=== PATIENT | male | born 1940 | race Caucasian/White ===

== ENCOUNTER 2017-05-22 14:37 | Outpatient (CLI) | payer MEDICARE, OTHER ==
[2017-05-22 14:30] VITALS: BP 103/54
[2017-05-22] MEDS ORDERED: LINZESS145 MCG PO (15:56)
[2017-05-22] MEDS ORDERED: DEXILANT60 MG ORAL (16:00)
--- NOTE | 2017-05-22 16:21 | GI Initial Consult Note ---
Molina,Sydnee Rene N.P. 05/22/17 1621: History of Present Illness General Date patient seen: May 22, 2017 Time patient seen: 16:17 Referring physician: KAMLA Reason for Consultation: ABDOMINAL PAIN Present Illness HPI 76 year old male referred by Dr. Calderon for evaluation of abdominal pain. The patient has history of recent GIB, had EGD/colonoscopy approximately 45 days ago dx with PUD. Presents with abdominal pain, c/o of burning sensation and constipation. Denies any unintentional weight loss or changes in dietary habits. No signs of abuse or neglect. Patient is not fall risk. Home Meds Reported Medications Sitagliptin Phos/Metformin Hcl (JANUMET 50-500 MG TABLET) 1 Each Tablet, 1 TAB ORAL DAILY, TAB 05/28/17 Aspirin* (ASPIR 81*) 81 Mg Tablet.dr, 81 MG ORAL DAILY, TAB 05/28/17 Rosuvastatin Calcium* (CRESTOR*) 40 Mg Tablet, 40 MG ORAL DAILY, TAB 05/28/17 Metoprolol Succinate* (METOPROLOL SUCCINATE*) 25 Mg Tab.er.24h, 25 MG ORAL DAILY , TAB 05/28/17 Dexlansoprazole (Dexilant) 60 Mg Cap.bp, 60 MG ORAL DAILY, CAP 05/22/17 Linaclotide (LINZESS) 145 Mcg Capsule, 145 MCG PO DAILY, CAP 05/22/17 Med list reviewed/reconciled: Yes Allergies: Coded Allergies: No Known Allergies (Unverified , 05/22/17) Patient History History Provided By: Patient PMH Narrative recent PUD recent blood transfusion GERD Past Surgical History: none Social History: Denies: smoking, alcohol use, drug use, other Review of Systems All Other Systems: negative except mentioned in HPI Physical Exam Vital Signs Date Time Temp Pulse Resp B/P (MAP) Pulse Ox O2 Delivery O2 Flow Rate FiO2 05/22/17 14:30 97.7 70 103/54 96 97.7 Sp02 EP Interpretation: reviewed, normal General Appearance: well appearing, no apparent distress, alert Head: normocephalic EENT: PERRL/EOMI, normal ENT inspection Neck: supple Respiratory: normal breath sounds, no respiratory distress Cardiovascular: normal rate Gastrointestinal: normal inspection, non tender, soft, normal bowel sounds, non -distended Rectal: deferred Genitourinary: deferred Musculoskeletal: normal inspection, back normal Neurologic: normal inspection, alert, oriented x3, responsive Psychiatric: normal inspection, judgement/insight normal, memory normal Skin: normal inspection, normal color, no rash, warm/dry, palpation normal, well hydrated Lymphatic: normal inspection, no adenopathy GI: Plan Problems: (1) Encounter for diagnostic endoscopy (2) Constipation (3) GERD (gastroesophageal reflux disease) (4) GIB (gastrointestinal bleeding) (5) Abdominal pain Plan EGD/EUS scheduled for 05/28/17. - NPO @ [place] day prior procedure explained. Seen with Dr. Merchant. Thank you for this patient referral. CLARISSA MERCHANT 05/28/17 1220: History of Present Illness Present Illness Home Meds Reported Medications Sitagliptin Phos/Metformin Hcl (JANUMET 50-500 MG TABLET) 1 Each Tablet, 1 TAB ORAL DAILY, TAB 05/28/17 Aspirin* (ASPIR 81*) 81 Mg Tablet., 81 MG ORAL DAILY, TAB 05/28/17 Rosuvastatin Calcium* (CRESTOR*) 40 Mg Tablet, 40 MG ORAL DAILY, TAB 05/28/17 Metoprolol Succinate* (METOPROLOL SUCCINATE*) 25 Mg Tab.er.24h, 25 MG ORAL DAILY , TAB 05/28/17 Dexlansoprazole (Dexilant) 60 Mg Cap.bp, 60 MG ORAL DAILY, CAP 05/22/17 Linaclotide (LINZESS) 145 Mcg Capsule, 145 MCG PO DAILY, CAP 05/22/17 Allergies: Coded Allergies: No Known Allergies (Unverified , 05/22/17) GI: Plan Plan The patient was seen and examined at bedside and all new and available data was reviewed in the patients chart. I agree with the above findings, impression and plan. (Patient seen earlier today. Signature stamp does not reflect patient encounter time.). - MD Tracy Ramires,[facility] Rene N.P. May 22, 2017 16:21 CLARISSA MERCHANT May 28, 2017 12:20
== END 2017-05-22 15:09 | disposition home or self-care (01) ==
LOC: PAN 14:37
DX: R10.9 Unspecified abdominal pain (principal); K59.00 Constipation, unspecified; K21.9 Gastro-esophageal reflux disease without esophagitis; K92.2 Gastrointestinal hemorrhage, unspecified
CPT/HCPCS: 99212

== ENCOUNTER 2017-05-28 10:46 | Day surgery (SDC) | payer MEDICARE, OTHER ==
[2017-05-28] VITALS (7 sets, daily range): BP systolic 107–149; BP diastolic 70–84
[~2017-05-28] VITALS: Ht 163.8 cm; Wt 93.0 kg
[~2017-05-28 10:46] MED LIST: DEXILANT60 MG ORAL; LINZESS145 MCG PO
[2017-05-28] MEDS ORDERED: Propofol 200mg/20ml IV ONE (11:30)
[2017-05-28] MEDS ORDERED: Lidocaine 1% MPF 10mg/ml 5ml ONE (11:30)
[2017-05-28] MEDS ORDERED: Midazolam 2mg/2ml Inj ONE (11:30)
--- NOTE | 2017-05-28 11:46 | Immediate Post-Op Evaluation ---
Immediate Post-Op Evalulation Immediate Post-Op Evalulation Procedure: EGD/EUS w/ biopsy Date of Evaluation: May 28, 2017 Time of Evaluation: 12:58 IV Fluids: NSS 550 ml Blood Products: 0 Estimated Blood Loss: 0 Urinary Output: 0 Blood Pressure Systolic: 125 Blood Pressure Diastolic: 75 Pulse Rate: 76 Respiratory Rate: 20 O2 Sat by Pulse Oximetry: 100 Temperature (Fahrenheit): 97.5 Pain Score (1-10): 0 Nausea: No Vomiting: No Complications none noted Patient Status: awake, reacts, patent Hydration Status: adequate Given Within 1 Hr of Incision: Claudia Wooten CRNA May 28, 2017 11:46
--- NOTE | 2017-05-28 11:46 | Anethesia Preoperative Eval ---
Anesthesia Pre-op PMH/ROS General Date of Evaluation: May 28, 2017 Time of Evaluation: 11:50 Anesthesiologist: Booker ASA Score: ASA 3 Mallampati Score Class I : Soft palate, uvula, fauces, pillars visible Class II: Soft palate, uvula, fauces visible Class III: Soft palate, base of uvula visible Class IV: Only hard plate visible Mallampati Classification: Class III Surgeon: René Diagnosis: Peptic Ulcer Disease Surgical Procedure: EGD/EUS Anesthesia History: none Family History: no anesthesia problems Allergies: Coded Allergies: No Known Allergies (Unverified , 05/22/17) Medications: see eMAR Past Medical History Cardiovascular: Reports: HTN, CAD, other - cardiac stent, high lipids Pulmonary: Denies: asthma, COPD, TAMAR, other Gastrointestinal/Genitourinary: Reports: GERD, other - PUD, abdominal pain, GI bleeding in past Neurologic/Psychiatric: Denies: dementia, CVA, depression/anxiety, TIA, other Endocrine: Reports: DM Hematology/Immune: Denies: anemia, DVT, bleeding disorder, other Musculoskeletal/Integumentary: Reports: OA Other: obesity PSxH Narrative: TURP, R leg ORIF, Cardiac stent, Anesthesia Pre-op Phys. Exam Physician Exam Last Vital Signs Date Time Temp Pulse Resp B/P (MAP) Pulse Ox O2 Delivery O2 Flow Rate FiO2 05/28/17 11:30 98.8 68 20 142/79 99 Room Air 98.8 Constitutional: NAD Neurologic: CN 2-12 intact Cardiovascular: RRR Respiratory: CTA Gastrointestinal: S/NT/ND Airway Exam Mallampati Score: Class III MO: full ROM: full Teeth: missing Dentures: upper, lower Anesthesia Pre-op A/P Labs chart reviewed Accucheck 100 pre op Studies Pre-op Studies: EKG - NSR 66 bpm Risk Assessment & Plan Assessment: A&Ox4. Heel Layer used to obtain consent and ask questions. Pt stated ate 1/4 [place]ado around 7 am. Plan: Plan disucssed with MD for MAC and general if need to convert. Status Change Before Surgery: No Pre-Antibiotics Given Within 1 Hr of Incision: No - none per surgeon Claudia Celeste CRNA May 28, 2017 11:46
--- NOTE | 2017-05-28 11:47 | 48 Hour Post Anesthesia Eval ---
Post Anesthesia Evaluation Procedure: EGD/EUS w/ biopsy Date of Evaluation: May 28, 2017 Time of Evaluation: 13:15 Blood Pressure Systolic: 128 0: 78 Pulse Rate: 75 Respiratory Rate: 22 Temperature (Fahrenheit): 97.5 O2 Sat by Pulse Oximetry: 100 Airway: patent Nausea: No Vomiting: No Pain Intensity: 0 Hydration Status: adequate Mental Status/LOC: patient returned to baseline Post-Anesthesia Complications: none noted Follow-up care needed: patient intructions given Claudia Celeste CRNA May 28, 2017 11:47
--- NOTE | 2017-05-28 12:00 | Pre-Procedure Note/Attestation ---
Pre-Procedure Note/Attestation Complete Prior to Procedure Planned Procedure: not applicable Procedure Narrative: egd/eus Indications for Procedure Pre-Operative Diagnosis: gastric ulcer Attestation I attest that I discussed the nature of the procedure; its benefits; risks and complications; and alternatives (and the risks and benefits of such alternatives ), prior to the procedure, with the patient (or the patient's legal outside sales account representative). I attest that, if there was a reasonable possibility of needing a blood transfusion, the patient (or the patient's legal outside sales account representative) was given the [facility] standardized written summary, pursuant to the [place] Blood Safety Act ([place] Health and Safety Code # 1645, as amended). I attest that I re-evaluated the patient just prior to the surgery and that there has been no change in the patient's H&P, except as documented below: CLARISSA MERCHANT May 28, 2017 12:00
--- NOTE | 2017-05-28 12:01 | Short Stay Surgery H&P ---
History of Present Illness History of Present Illness Chief Complaint see recent consult note HPI Beatrice Johnson is a 76 year old male who was admitted on for Gerd,Peptic Ulcer Disease Patient History Allergies: Coded Allergies: No Known Allergies (Unverified , 05/22/17) PAST MEDICAL HISTORY: Past Surgeries: Social History: Medication History Scheduled Dexlansoprazole (Dexilant), 60 MG ORAL DAILY, (Reported) Linaclotide (Linzess), 145 MCG PO DAILY, (Reported) Physical Exam Vital Signs Last Vital Signs Date Time Temp Pulse Resp B/P (MAP) Pulse Ox O2 Delivery O2 Flow Rate FiO2 05/28/17 11:30 98.8 68 20 142/79 99 Room Air 98.8 Plan Attestation Are the patient's medical conditions optimized for surgery? CLARISSA MERCHANT May 28, 2017 12:01
[2017-05-28] MEDS ORDERED: CRESTOR40 MG ORAL (12:09)
[2017-05-28] MEDS ORDERED: METOPROLOL SUCC25 MG ORAL (12:09)
[2017-05-28] MEDS ORDERED: ASPIR 8181 MG ORAL (12:11)
[2017-05-28] MEDS ORDERED: JANUMET 50-5001 EACH ORAL (12:12)
--- NOTE | 2017-05-28 12:50 | Endoscopy Procedure Note ---
Endoscopy Procedure Note General Indication for Procedure: GASTRIC ULCER Procedures Performed: EGD, other - eus Operative Findings/Diagnosis: SAME Specimen: yes Pt Tolerated Procedure Well: Yes Estimated Blood Loss: none Anesthesia Anesthesiologist: JUN Anesthesia: MAC Inserted Devices Implant(s) used?: No GI Core Measures 50 yrs or older w/o bx or poly: Not Applicable 10yrs. F/U not recommended: Not Applicable CLARISSA MERCHANT May 28, 2017 12:50
--- NOTE | 2017-05-28 21:01 | Procedure Note ---
DATE OF PROCEDURE: 05/28/2017 PROCEDURE: Upper endoscopy with biopsy and endoscopic ultrasound. SURGEON: Nelson Merritt M.D. ANESTHESIOLOGIST: Booker JACQUES. ANESTHESIA: Per Booker JACQUES. INSTRUMENT: Olympus adult flexible upper endoscope and EUS scope. INDICATION: Gastric ulcer not responding to treatment. The procedure, risks, benefits, and possible consequences, including hemorrhage, aspiration, perforation and infection, and alternative treatments, were explained to the patient/legal guardian by Dr. Nelson Merritt and the patient/legal guardian understood and accepted these risks. DESCRIPTION OF PROCEDURE: After informed consent was obtained and the patient was adequately sedated, Olympus upper endoscope was initially advanced through the mouth into the second portion of the duodenum and retroflexion was performed of the stomach. The patient had evidence of an ulcerated area in the peripyloric region along the greater curvature at about 9 o'clock position. No active bleeding. No visible vessel. No adherent clot. At this time, the upper scope was retrieved. The EUS radial scope was introduced. Scanning of the ulcer showed thickening of the gastric wall to about 1.3 cm. No obvious lymph nodes were seen around this ulcer. This inflammation/lesion was confined to the submucosa, not invading the surrounding fat. This ulcer is very close to the liver. There was no obvious liver involvement. I am not sure if this is inflammation versus tumor. It is hard to say given active ulceration in this area and inflammation. At this time, the EUS scope was retrieved and the upper endoscope was introduced and we used the Jumbo biopsy with multiple biopsies of this ulcer and also we biopsied the antrum. The patient tolerated the procedure very well without any complication. SUMMARY OF FINDINGS: An area of the ulceration in the peripyloric region along the greater curvature at 9 o'clock position with gastric wall thickening to about 1.3 cm without any obvious lymphadenopathy or any other organ involvement. This is inflammation versus malignancy, most likely inflammation. RECOMMENDATIONS: Follow biopsy results and we will treat accordingly. I want to thank, Dr. ugarte, for this kind referral. Nelson Merritt M.D. DR: Consuelo JOB#: [id number] CC: MTDD
--- NOTE | 2017-06-11 17:14 | Cardiology Report ---
APPROVED REPORT EKG Measurement Heart [id number] Normal sinus rhythm Left bundle branch block Abnormal ECG
== END 2017-05-28 15:00 | disposition home or self-care (01) ==
LOC: GAS 10:46
DX: K25.9 Gastric ulcer, unspecified as acute or chronic, without hemorrhage or perforation (principal); K21.9 Gastro-esophageal reflux disease without esophagitis; I11.9 Hypertensive heart disease without heart failure; E11.9 Type 2 diabetes mellitus without complications; M19.90 Unspecified osteoarthritis, unspecified site; Z95.5 Presence of coronary angioplasty implant and graft; K31.9 Disease of stomach and duodenum, unspecified
CPT/HCPCS: 43237; 43239; 82378; 82962; 93005; J2250; J2704; 94003; 94150

== ENCOUNTER 2017-06-05 13:31 | Outpatient (CLI) | payer MEDICARE, OTHER ==
[~2017-06-05 13:31] MED LIST changes: +ASPIR 8181 MG ORAL; +CRESTOR40 MG ORAL; +JANUMET 50-5001 EACH ORAL; +METOPROLOL SUCC25 MG ORAL
--- NOTE | 2017-06-05 16:35 | GI Progress Note ---
Assessment/Plan Problems: (1) Gastropathy ICD Codes: K31.9 - Disease of stomach and duodenum, unspecified SNOMED: 82233697 (2) Gastric wall thickening ICD Codes: K31.89 - Other diseases of stomach and duodenum SNOMED: 38074956 (3) Gastric ulcer ICD Codes: K25.9 - Gastric ulcer, unspecified as acute or chronic, without hemorrhage or perforation SNOMED: 354461726 Status: stable Status Narrative Seen with Dr. Merritt. Assessment/Plan s/p EGD/EUS SUMMARY OF FINDINGS: An area of the ulceration in the peripyloric region along the greater curvature at 9 o'clock position with gastric wall thickening to about 1.3 cm without any obvious lymphadenopathy or any other organ involvement. This is inflammation versus malignancy, most likely inflammation. RECOMMENDATIONS: Follow biopsy results and we will treat accordingly. >> negative for H. Pylori cont PPI + carafate repeat EGD in June RTC x 1 month Subjective Subjective no GI symptoms Objective T 98.9 BP 143/78 P 65 97 RA General Appearance: WD/WN, no apparent distress, alert Cardiovascular: normal rate Respiratory/Chest: normal breath sounds, no respiratory distress Abdominal Exam: normal bowel sounds, non tender, soft Extremities: normal range of motion, non-tender Sydnee Molina N.P. Jun 05, 2017 16:35
== END 2017-06-05 14:03 | disposition home or self-care (01) ==
LOC: PAN 13:31
DX: K31.9 Disease of stomach and duodenum, unspecified (principal); K31.89 Other diseases of stomach and duodenum; K25.9 Gastric ulcer, unspecified as acute or chronic, without hemorrhage or perforation

== ENCOUNTER → 2017-07-16 | Day surgery (SDC) | payer MEDICARE, OTHER ==
[~2017-07-16] VITALS: Ht 162.6 cm; Wt 89.8 kg
--- NOTE | 2017-07-16 10:34 | Pre-Procedure Note/Attestation ---
Pre-Procedure Note/Attestation Complete Prior to Procedure Planned Procedure: not applicable Procedure Narrative: egd Indications for Procedure Pre-Operative Diagnosis: gerd Attestation I attest that I discussed the nature of the procedure; its benefits; risks and complications; and alternatives (and the risks and benefits of such alternatives ), prior to the procedure, with the patient (or the patient's legal outside energy sales representatives). I attest that, if there was a reasonable possibility of needing a blood transfusion, the patient (or the patient's legal outside energy sales representatives) was given the [facility] standardized written summary, pursuant to the [place] Blood Safety Act ([place] Health and Safety Code # 1645, as amended). I attest that I re-evaluated the patient just prior to the surgery and that there has been no change in the patient's H&P, except as documented below: CLARISSA MERCHANT Jul 16, 2017 10:34
--- NOTE | 2017-07-16 10:35 | Short Stay Surgery H&P ---
History of Present Illness History of Present Illness Chief Complaint gastric ulcer HPI Beatrice Johnson is a 76 year old male who was admitted on for GERD Patient History Allergies: Coded Allergies: No Known Allergies (Unverified , 05/22/17) PAST MEDICAL HISTORY: (1) Gastric wall thickening (2) Gastropathy (3) Gastric ulcer (4) Abdominal pain (5) GERD (gastroesophageal reflux disease) Medication History Scheduled Aspirin* (Aspir 81*), 81 MG ORAL DAILY, (Reported) Dexlansoprazole (Dexilant), 60 MG ORAL DAILY, (Reported) Linaclotide (Linzess), 145 MCG PO DAILY, (Reported) Metoprolol Succinate* (Metoprolol Succinate*), 25 MG ORAL DAILY, (Reported) Rosuvastatin Calcium* (Crestor*), 40 MG ORAL DAILY, (Reported) Sitagliptin Phos/Metformin Hcl (Janumet 50-500 Mg Tablet), 1 TAB ORAL DAILY, ( Reported) Review of Systems Cardiovascular: Reports: no symptoms Respiratory: Reports: no symptoms Skeletal: Reports: no symptoms Gastrointestinal: Reports: no symptoms Genitourinary: Reports: no symptoms Neurologic: Reports: no symptoms Endocrine: Reports: no symptoms Hematologic: Reports: no symptoms Physical Exam Skin: normal HENT: normal Heart: normal Lungs: normal Abdomen: normal Extremities: normal Plan Plan of Care egd Attestation Are the patient's medical conditions optimized for surgery? Attestation Response: yes CLARISSA MERCHANT Jul 16, 2017 10:35
[2017-07-16 11:13] VITALS: BP 125/69
== END | disposition home or self-care (01) ==
LOC: GAS 10:20
DX: Z01.812 Encounter for preprocedural laboratory examination (principal); Z53.9 Procedure and treatment not carried out, unspecified reason
CPT/HCPCS: 82962

== ENCOUNTER 2017-08-21 15:03 | Outpatient (CLI) | payer MEDICARE, OTHER ==
--- NOTE | 2017-08-21 15:44 | GI Progress Note ---
Assessment/Plan Problems: (1) Gastric ulcer ICD Codes: K25.9 - Gastric ulcer, unspecified as acute or chronic, without hemorrhage or perforation SNOMED: 790753338 (2) Gastric wall thickening ICD Codes: K31.89 - Other diseases of stomach and duodenum SNOMED: 53790146 (3) GERD (gastroesophageal reflux disease) ICD Codes: K21.9 - Gastro-esophageal reflux disease without esophagitis SNOMED: 371116525 (4) Abdominal pain ICD Codes: R10.9 - Unspecified abdominal pain SNOMED: 04854430 Status: stable Status Narrative Seen with Dr. Merritt. Assessment/Plan EGD scheduled 08/27/17. - NPO @ [place] day prior procedure. cont ppi Subjective Gastrointestinal/Abdominal: Reports: no symptoms Objective WT 199lbs General Appearance: WD/WN, no apparent distress, alert Cardiovascular: normal rate Respiratory/Chest: normal breath sounds, no respiratory distress Abdominal Exam: normal bowel sounds, non tender, soft Extremities: normal range of motion, non-tender Sangeetha Molina GOVERNMENT RELATIONS DIRECTOR August 21, 2017 15:44
[2017-08-21] MEDS ORDERED: CARAFATE1 GM/10 M1 ORAL (16:17)
== END 2017-08-21 15:33 | disposition home or self-care (01) ==
LOC: PAN 15:03
DX: K25.9 Gastric ulcer, unspecified as acute or chronic, without hemorrhage or perforation (principal); K31.89 Other diseases of stomach and duodenum; K21.9 Gastro-esophageal reflux disease without esophagitis; R10.9 Unspecified abdominal pain
CPT/HCPCS: 99212

== ENCOUNTER 2017-09-11 13:22 | Outpatient (CLI) | payer MEDICARE, OTHER ==
[~2017-09-11 13:22] MED LIST changes: +CARAFATE1 GM/10 M1 ORAL
--- NOTE | 2017-09-11 16:12 | GI Progress Note ---
Assessment/Plan Problems: (1) Gastric wall thickening ICD Codes: K31.89 - Other diseases of stomach and duodenum SNOMED: 70573813 (2) Abdominal pain ICD Codes: R10.9 - Unspecified abdominal pain SNOMED: 67625410 (3) GERD (gastroesophageal reflux disease) ICD Codes: K21.9 - Gastro-esophageal reflux disease without esophagitis SNOMED: 472911797 (4) Gastric ulcer ICD Codes: K25.9 - Gastric ulcer, unspecified as acute or chronic, without hemorrhage or perforation SNOMED: 948314724 (5) Constipation ICD Codes: K59.00 - Constipation, unspecified SNOMED: 76968509 (6) Gastropathy ICD Codes: K31.9 - Disease of stomach and duodenum, unspecified SNOMED: 08548808 (7) GIB (gastrointestinal bleeding) ICD Codes: K92.2 - Gastrointestinal hemorrhage, unspecified SNOMED: 15251272 Status: stable Status Narrative Seen with Dr. Merritt. Assessment/Plan SUMMARY OF FINDINGS: 1. Healing prepyloric ulcer, status post biopsy. 2. A new small ulcer above that one without any adherent clot or visible vessel. 3. Gastritis, status post biopsy. PUD RECOMMENDATIONS: 1. Follow up biopsy results and treat accordingly. >> negative 2. Continue on Dexilant 60 mg daily. RTC x 3 months The patient was seen and examined at bedside and all new and available data was reviewed in the patients chart. I agree with the above findings, impression and plan. (Patient seen earlier today. Signature stamp does not reflect patient encounter time.). - Nelson Merritt MD Subjective Gastrointestinal/Abdominal: Reports: no symptoms Objective T 97.6 BP 148/79 P 63 98 RA General Appearance: WD/WN, no apparent distress, alert Cardiovascular: normal rate Respiratory/Chest: normal breath sounds, no respiratory distress Abdominal Exam: normal bowel sounds, non tender, soft Extremities: normal range of motion, non-tender Sangeetha Molina WOOD BORER Sep 11, 2017 16:12
== END 2017-09-11 13:55 | disposition home or self-care (01) ==
LOC: PAN 13:22
DX: R10.9 Unspecified abdominal pain (principal); K31.89 Other diseases of stomach and duodenum; K21.9 Gastro-esophageal reflux disease without esophagitis; K25.9 Gastric ulcer, unspecified as acute or chronic, without hemorrhage or perforation; K59.00 Constipation, unspecified; K31.9 Disease of stomach and duodenum, unspecified; K92.2 Gastrointestinal hemorrhage, unspecified; K29.70 Gastritis, unspecified, without bleeding
CPT/HCPCS: 99211